=== PATIENT | male | born 1990 | race Caucasian/White ===

== ENCOUNTER 2021-01-03 10:01 | Emergency (ER) | payer OTHER ==
--- NOTE | 2021-01-03 12:02 | Emergency Department Report ---
Upper Extremity - HPI Chief Complaint: Extremity Injury, Upper Stated Complaint: RT HAND RING FINGER INJURY Time Seen by Provider: 01/03/21 11:47 Upper Extremity: Right Ring Finger (crush injury/laceration ) Occurred When: Today Mechanism: Crush Severity: severe Symptoms: Yes Pain with Movement, Yes Limited Range of Movement, Yes Swelling, Yes Bruising/Ecchymosis, Yes Laceration or Abrasion, No Deformity, No Numbness, No Weakness Other History: 30-year-old male presents to the ER today with complaints of right ring finger pain and injury. Patient states that this injury occurred just prior to arrival while she was at work. Patient states that his finger got caught between 2 logs that was on a conveyor belt. He reports significant pain to the distal aspect of the right ring finger as well as laceration and bleeding. He states that his last tetanus was in 2017. He is right-hand dominant. He has not taken anything for the pain since the injury. ED Review of Systems ROS: Stated complaint: RT HAND RING FINGER INJURY Other details as noted in HPI Comment: All other systems reviewed and negative Constitutional: denies: chills, fever Eyes: denies: eye pain, eye discharge, vision change ENT: denies: ear pain, throat pain, dental pain, hearing loss, epistaxis, congestion Respiratory: denies: cough, shortness of breath, SOB with exertion, SOB at rest, stridor, wheezing Cardiovascular: denies: chest pain, palpitations, edema, syncope, paroxysmal nocturnal dyspnea Gastrointestinal: denies: abdominal pain, nausea, diarrhea Genitourinary: denies: urgency, dysuria, frequency, hematuria, discharge, testicular pain, testicular mass Musculoskeletal: denies: back pain, joint swelling, arthralgia Skin: other (laceration distal right finger ). denies: rash, lesions, change in color, change in hair/nails, pruritus Neurological: denies: headache, weakness, numbness, paresthesias, confusion, abnormal gait, vertigo Psychiatric: denies: anxiety, depression, auditory hallucinations, visual hallucinations, homicidal thoughts, suicidal thoughts Hematological/Lymphatic: denies: easy bleeding, easy bruising, swollen glands ED Past Medical Hx - Medications Home Medications: Home Medications Medication Instructions Recorded Confirmed Last Taken Type HYDROcodone/APAP 5-325 [Evans 1 each PO Q4HR PRN #12 tablet 01/03/21 Unknown Rx 5/325] Ibuprofen [Motrin] 600 mg PO Q8H PRN #30 tablet 01/03/21 Unknown Rx cephALEXin [Keflex] 500 mg PO Q8HR #21 cap 01/03/21 Unknown Rx Upper Extremity Exam - Exam General: Vital signs noted. No distress. Alert and acting appropriately. Head and Torso: No HEENT Abnormality, No Neck Tenderness, No Chest/Lungs Abnormality, No Abdominal Tenderness, No Back Tenderness Shoulder Exam: Yes Normal Range of Motion in Shoulder, No Shoulder Tenderness, No Clavicle Tenderness, No Shoulder Deformity, No AC Joint Tenderness Arm Exam: No Arm/Humerus Tenderness, No Arm Deformity Elbow: Yes Normal Range of Motion in Elbow, No Elbow Tenderness, No Elbow Deformity Forearm: No Forearm Tenderness, No Forearm Deformity, No Pain with Pronation, No Pain with Supination Wrist: Yes Normal ROM in Wrist, No Wrist Tenderness, No Wrist Deformity, No Snuffbox Tenderness, No Pain with Axial Thumb Compression Hand: Yes Digit Tenderness (Severe tenderness to palpation to the distal aspect of the right ring finger, with 2 lacerations noted, swelling and bruising; there is some mild bleeding but this can be controlled with pressure. No apparent nail avulsion or nailbed injury. No apparent deformity.), No Normal ROM in Digit(s), No Digit(s) Deformity CMS Exam: Yes Broken Skin (Lacerations noted to the distal aspect of the right ring finger), Yes Normal Distal Pulses, Yes Normal Capillary Refill, Yes Normal Distal Sensation - Laceration /Wound Repair Right Distal Finger Wound Location: upper extremity (Right ring finger ) Wound Length (cm): 7 Wound's Depth, Shape: irregular, contused tissue Wound Explored: clean Irrigated w/ Saline (ccs): 250 Betadine Prep?: Yes Wound Repaired With: sutures Suture Size/Type: 4:0 Number of Sutures: 14 Layer Closure?: No Sterile Dressing Applied?: Yes Progress: Patient tolerated procedure well without any complications ED Medical Decision Making - Radiology Data Radiology results: report reviewed Patient: FILIPPO CALIX MR#: [id number] : 1990 Acct:[id number] Age/Sex: 30 / M ADM Date: 01/03/21 Loc: ED Attending Dr: Ordering Physician: STEPHANIE GARCIA Date of Service: 01/03/21 Procedure(s): XR finger(s) 2+V RT Accession Number(s): [id number] cc: STEPHANIE Tesfaye Time In Minutes: Right finger radiograph, 3 views HISTORY: Crush injury COMPARISON: None FINDINGS: There is an acute mildly comminuted and displaced fracture of the terminal tuft of the right ring finger distal phalanx. No additional fracture. There is soft tissue swelling of the right ring finger. No radiopaque foreign body identified. Signer Name: Chelsey Craven MD Signed: 01/03/2021 12:35 PM Workstation Name: [id number] Transcribed By: JS Dictated By: CHELSEY CRAVEN MD Electronically Authenticated By: CHELSEY CRAVEN MD Signed Date/Time: 01/03/21 1235 DD/ 1234 TD/TT: - Medical Decision Making 1353; x-ray of patient's right ring finger shows a tuft fracture. Patient has a laceration over the distal aspect of his right finger. This was repaired by me, see procedure note for detail. No neurovascular compromise noted. Discussed results with patient. Informed him that he has a open fracture, and will need close follow-up with Ortho hand specialist which will be given to him on his discharge instructions. Patient will be started on oral antibiotics, as well as given medication for pain. Finger splint. Wound care discussed with patient. He is already up-to-date on his tetanus. Patient expressed understanding of all instructions and agree with plan. Patient was stable at time of discharge. Critical care attestation.: If time is entered above; I have spent that time in minutes in the direct care of this critically ill patient, excluding procedure time. ED Disposition Clinical Impression: Laceration of finger, Open fracture of tuft of distal phalanx of finger Disposition: HOME / SELF CARE / HOMELESS Is pt being admited?: No Does the pt Need Aspirin: No Condition: Stable Instructions: Finger Fracture, Adult, [id number], Laceration Care, Adult Additional Instructions: I recommend that you keep the area clean daily with soap and water. Do not use peroxide or alcohol to clean the wound. Dry well after each cleaning and apply thin layer of Neosporin, reapply dressing and finger splint. It is most important that you follow-up with Ortho hand specialist either this week or next week given that you have a open finger fracture. Take the pain medications as prescribed and take the Keflex as prescribed. Return to the ER if your symptoms changes or worsens in any way. Prescriptions: cephALEXin [Keflex] 500 mg PO Q8HR #21 cap Ibuprofen [Motrin] 600 mg PO Q8H PRN #30 tablet PRN Reason: Pain HYDROcodone/APAP 5-325 [Evans 5/325] 1 each PO Q4HR PRN #12 tablet PRN Reason: Pain Referrals: [facility] [Provider Group] - 3-5 Days Forms: Work/School Release Form(ED) Time of Disposition: 13:50 Print Language: AZERI
--- NOTE | 2021-01-03 12:39 | XRay Report ---
Right finger radiograph, 3 views HISTORY: Crush injury COMPARISON: None FINDINGS: There is an acute mildly comminuted and displaced fracture of the terminal tuft of the righ t ring finger distal phalanx. No additional fracture. There is soft tissue swelling of the right ring finger. No radiopaque foreign body identified. Signer Name: Giuseppe Craven MD Signed: 01/03/2021 12:35 PM Workstation Name: [id number]
[2021-01-03] MEDS ORDERED: HYDROcodone/ACETAMINOPHEN 5-325 MG TAB PO ONE (12:45)
[2021-01-03 12:47] VITALS: BP 119/89
[2021-01-03] MEDS ORDERED: NEOMY 3.5 MG/BACIT 400 UNITS/POLY B 5000 UNITS/GM OINT PACKET TP ONE (13:46)
== END 2021-01-03 15:14 | disposition home or self-care (01) ==
LOC: ED 10:01
DX: S62.634B Displaced fracture of distal phalanx of right ring finger, initial encounter for open fracture (principal); W31.9XXA Contact with unspecified machinery, initial encounter; Y93.89 Activity, other specified; Y92.89 Other specified places as the place of occurrence of the external cause; Y99.0 Civilian activity done for income or pay
CPT/HCPCS: 29130; 73140; 99283; A6250